=== PATIENT | female | born 1950 | race Caucasian/White ===

== ENCOUNTER → 2016-07-25 | Outpatient (CLI) | payer OTHER ==
[~2016-07-25] MED LIST: ASPIRIN325 MG PO; CELEBREX200 MG PO; D3 + K2 DOTS 11 EACH PO; DIOVAN80 MG PO; EFFER-K 10 MEQ10 MEQ PO; FOLBIC RF TABL1 EACH PO; IRON325 M1 PO; MAG-TAB SR84 MG PO; NAPROSYN500 MG PO; NORCO 5/3251 TABLET PO; PERCOCET 5/31 TABLET PO; PROTONIX40 MG PO; RANITIDINE HCL150 MG PO; REGLAN10 MG PO; ULTRAM50 MG PO
== END | disposition home or self-care (01) ==
DX: R26.2 Difficulty in walking, not elsewhere classified (principal); M17.12 Unilateral primary osteoarthritis, left knee; M25.562 Pain in left knee; M25.662 Stiffness of left knee, not elsewhere classified; M62.81 Muscle weakness (generalized)
CPT/HCPCS: 97110 GP; 97150 GO; 97161 GP; 97165 GO

== ENCOUNTER 2016-08-08 05:32 | Inpatient (IN) | payer OTHER ==
[~2016-08-08] VITALS: Ht 157.5 cm; Wt 64.1 kg
[~2016-08-08 05:32] MED LIST changes: +CLARITIN10 M3 PO; +HYDROCHLOROTHIA25 MG PO; +KLOR-CON 88 MEQ PO
[2016-08-08 06:19] VITALS: BP 118/58
[2016-08-08 10:29] VITALS: BP 104/56
[2016-08-08 10:43] LABS: MCH 30.1 PG (29.0-34.0); MCHC 33.8 G/DL (30.0-36.0); MCV 89.2 FL (83-99); MEAN PLAT.VOLUME 9.6 uM^3 (9.5-12.4); PLATELET COUNT 211 K/uL (156-360); RBC DIS.WIDTH-CV 12.7 % (11.8-14.6); RBC DIS.WIDTH-SD 41.3 % (39-53); RED BLOOD COUNT 4.15 M/uL (3.80-5.20); WHITE BLOOD COUNT 5.1 K/uL (4.1-10.2)
[2016-08-08 15:37] VITALS: BP 119/58
[2016-08-08 20:30] VITALS: BP 125/65
[2016-08-09 00:10] VITALS: BP 118/57
[2016-08-09 04:00] VITALS: BP 107/53
[2016-08-09 06:22] LABS: HEMATOCRIT 33.7 % (36.0-46.0); MCV 87.1 FL (83-99)
[2016-08-09 06:44] LABS: ANION GAP 9 MEQ/L (2-14); CHLORIDE 94 MEQ/L (99-109); GFR ESTIMATE (CALCULATED) > 59 mL/min/; GLUCOSE 128 mg/dL (70-99); POTASSIUM 3.1 MEQ/L (3.7-5.4); SAMPLE HEMOLYSIS CHECK 0; SAMPLE ICTERIC CHECK 0; SAMPLE LIPEMIA CHECK 0; SODIUM 132 MEQ/L (136-147); UREA NITROGEN (BUN) 11 mg/dL (9-23)
[2016-08-09 08:16] VITALS: BP 137/60
[2016-08-09 12:07] VITALS: BP 108/57
[2016-08-09 15:55] VITALS: BP 110/54
[2016-08-09 20:30] VITALS: BP 148/68
[2016-08-10] VITALS: BP 115/57
[2016-08-10 04:00] VITALS: BP 119/56
[2016-08-10 05:17] LABS: HEMATOCRIT 34.3 % (36.0-46.0); MCV 86.6 FL (83-99)
[2016-08-10 06:36] LABS: ALKALINE PHOSPHATASE 23 IU/L (3-129); ANION GAP 8 MEQ/L (2-14); CHLORIDE 102 MEQ/L (99-109); GFR ESTIMATE (CALCULATED) > 59 mL/min/; GLUCOSE 99 mg/dL (70-99); POTASSIUM 3.2 MEQ/L (3.7-5.4); SAMPLE HEMOLYSIS CHECK 0; SAMPLE ICTERIC CHECK 0; SAMPLE LIPEMIA CHECK 0; TOTAL BILIRUBIN 1.1 MG/DL (0.0-1.0); UREA NITROGEN (BUN) 10 mg/dL (9-23)
[2016-08-10 06:37] LABS: SODIUM 141 MEQ/L (136-147)
[2016-08-10] MEDS ORDERED: CELECOXIB200 MG PO (08:06)
[2016-08-10] MEDS ORDERED: LOVENOX40 MG/0.4 SC (08:06)
[2016-08-10] MEDS ORDERED: HYDROCODON-ACE1 EAC7 PO (08:06)
[2016-08-10 08:11] VITALS: BP 121/57
[2016-08-10 12:25] VITALS: BP 101/57
[2016-08-10 15:04] VITALS: BP 96/51
== END 2016-08-10 15:14 | DRG 470 ==
LOC: 2SOUTH 05:32 → 3WEST 10:16 → 2SOUTH 15:43 → 3WEST 08-10 15:14
PROVIDERS: Nurse Practitioner Family; Orthopaedic Surgery
PROC: 0SRD0J9 Replacement of Left Knee Joint with Synthetic Substitute, Cemented, Open Approach (ICD-10-PCS; principal; 2016-08-08)
DX: M17.12 Unilateral primary osteoarthritis, left knee (principal); E87.1 Hypo-osmolality and hyponatremia; K21.9 Gastro-esophageal reflux disease without esophagitis; E87.6 Hypokalemia; M81.0 Age-related osteoporosis without current pathological fracture; I10 Essential (primary) hypertension; E78.00 Pure hypercholesterolemia, unspecified
CPT/HCPCS: 73560; 80048; 80053; 85014; 85018; 85027; 97530 GO; C1713; J0690; J1170; J1650; J2250; J2405; J7030; J7050; J7120